=== PATIENT | female | born 1975 | race Caucasian/White ===

== ENCOUNTER → 2017-02-13 | Outpatient (CLI) | payer BC ==
[~2017-02-13] MED LIST: CALC500C3 PO; LABE100T16 PO; PRENTAB26 PO
--- NOTE | 2017-02-14 07:41 | MAMMOGRAPHY REPORT ---
BILATERAL DIGITAL SCREENING MAMMOGRAM TOMOSYNTHESIS WITH CAD: 02/13/2017 CLINICAL HISTORY: Routine screening. Patient has no complaints. TECHNIQUE: Breast tomosynthesis in addition to standard 2D mammography was performed. Nipple in pro file 2-D views were also obtained in the CC projection. Current study was also evaluated with a Comp uter Aided Detection (CAD) system. COMPARISON: Comparison is made to exams dated: 02/10/2016 mammogram - [facility], mammogram, 09/04/2013 ultrasound, and 03/24/2006 mammogram. BREAST COMPOSITION: There are scattered areas of fibroglandular density in both breasts. FINDINGS: There is a stable intramammary lymph node in the right upper outer quadrant. Stable 14 mm asymmetry in the anterior, slightly medial left breast adjacent to the nipple. No new suspicious mas s, architectural distortion or cluster of microcalcifications is seen. IMPRESSION: ACR BI-RADS CATEGORY 1: NEGATIVE There is no mammographic evidence of malignancy. A 1 year screening mammogram is recommended. The pa tient will receive written notification of the results. Approximately 10% of breast cancers are not detected with mammography. A negative mammographic report should not delay biopsy if a clinically suggestive mass is present. Sarah Tavarez M.D. ay/:02/13/2017 17:43:18 [employer] Hand: Petrona DESIR([place])(Nena)([place]), [facility] letter sent: Normal 1/2 BI-RADS Code: ACR BI-RADS Category 1: Negative
== END | disposition home or self-care (01) ==
LOC: C.MAMM 12:20
PROVIDERS: ATTEND Nurse Practitioner Family
DX: Z12.31 Encounter for screening mammogram for malignant neoplasm of breast (principal)

== ENCOUNTER → 2017-07-10 | Outpatient (CLI) | payer BC ==
--- NOTE | 2017-07-10 13:07 | DIAGNOSTIC IMAGING REPORT ---
R RIBS UNILATERAL WITH PA CHEST CLINICAL HISTORY: COUGH, RIB PAIN ON R SIDE pain. Cough. COMPARISON STUDY: None FINDINGS: Scattered atelectatic change left lung base. Lungs otherwise appear clear. No acute process of the right ribs. Cortical margins are intact. IMPRESSION: 1. Negative right ribs. 2. Scattered atelectasis left base. 3. Otherwise negative chest The above report was generated using voice recognition software. It may contain grammatical, syntax or spelling errors. Electronically signed by: Dariusz Worthington M.D. 07/10/2017 1:06 PM Dictated Date/Time: 07/10/2017 1:04 PM
== END | disposition home or self-care (01) ==
LOC: C.RAD1850 12:07
PROVIDERS: ATTEND Physician Assistant
DX: R05 Cough (principal); R07.81 Pleurodynia